=== PATIENT | male | born 1985 | race Two or more races ===

== ENCOUNTER 2022-05-07 07:11 | Emergency (ER) | payer OTHER ==
[~2022-05-07] VITALS: Ht 190.5 cm; Wt 112.0 kg
[2022-05-07] MEDS ORDERED: ACETAMINOPHEN 325 MG TAB PO ONE (09:30)
[2022-05-07 10:04] VITALS: BP 121/85
== END 2022-05-07 10:12 | disposition home or self-care (01) ==
LOC: EDBD 07:11 → ER 07:11
DX: S00.81XA Abrasion of other part of head, initial encounter (principal); E11.9 Type 2 diabetes mellitus without complications; I10 Essential (primary) hypertension; V89.2XXA Person injured in unspecified motor-vehicle accident, traffic, initial encounter; Y93.89 Activity, other specified; Y92.410 Unspecified street and highway as the place of occurrence of the external cause; Y99.8 Other external cause status
CPT/HCPCS: 71046